=== PATIENT | female | born 1985 | race Caucasian/White ===

== ENCOUNTER 2016-12-20 20:58 | Emergency (ER) | payer MEDICARE ==
[~2016-12-20] VITALS: Ht 162.6 cm; Wt 133.2 kg
[2016-12-20 21:48] LABS: BASOPHILS % (AUTO) 1 % (0-2); EOSINOPHILS # (AUTO) 0.1 10^3uL; EOSINOPHILS % (AUTO) 1 % (0-4); LYMPHOCYTES # (AUTO) 2.5 X10^3; MEAN CORPUSCULAR HEMOGLOBIN 29.6 PG (26.0-34.0); MEAN CORPUSCULAR HGB CONC 35.4 g/dL (31.0-37.0); MEAN CORPUSCULAR VOLUME 84 FL (80-100); MEAN PLATELET VOLUME 9.2 FL (6.0-9.5); MONOCYTES # (AUTO) 0.6 X10^3; MONOCYTES % (AUTO) 7 % (3-11); NEUTROPHILS # (AUTO) 4.8 X10^3; NEUTROPHILS % (AUTO) 60 % (51-67); PLATELET COUNT 179 10^3uL (150-450); WHITE BLOOD COUNT 7.98 10^3uL (4.0-11.0)
[2016-12-20 22:01] LABS: ALBUMIN 4.3 g/dL (3.4-5.0); ANION GAP 19.3 MEQ/L (3-15); TOTAL PROTEIN 7.7 g/dL (6.4-8.5)
[2016-12-20] MEDS ORDERED: ADENOSINE 6 MG/2 ML (ADENOCARD) VIAL IV ONE ×2 (22:10→22:30)
[2016-12-20] MEDS: SODIUM CHLORIDE FLUSH 10 ML SYR IV PRN ×3 (22:12→23:14)
[2016-12-20] MEDS ORDERED: SODIUM CHLORIDE FLUSH 3 ML SYR IV ONE (22:25)
--- NOTE | 2016-12-20 22:33 | NUR ---
notified dr casillas of patient lab blood glucose of 414 per livestock laborer. no new orders received at this time.
[2016-12-20 22:39] LABS: ERYTHROCYTE SEDIMENTATION RT* 29 mm/hr (0-21)
[2016-12-20] MEDS ORDERED: INSULIN LISPRO 1 UNIT/0.01 ML (HUMALOG) DOSE SC ONE (22:40)
[2016-12-20] MEDS ORDERED: INSULIN GLARGINE 1 UNIT/0.01ML (LANTUS) DOSE SC ONE (22:40)
[2016-12-20 22:43] LABS: BILIRUBIN,URINE Negative (Negative); CLARITY,URINE Cloudy; COLOR,URINE Yellow; GLUCOSE, URINE (UA) 2+ (Negative); LEUKOCYTE ESTERASE ,URINE Negative (Negative); URINE CENTRIFUGED VOLUME 12 mL; UROBILINOGEN,URINE 0.2 mg/dL (0.2-1.0)
[2016-12-20 22:44] LABS: RBC,URINE 0-2 /HPF; YEAST,URINE 1+
[2016-12-20] MEDS ORDERED: DILTIAZEM 25 MG/5 ML (CARDIZEM) VIAL IV ONE ×2 (22:50→23:10)
[2016-12-20] MEDS ORDERED: ONDANSETRON 2 MG/ML (Z0FRAN) 2 ML VIAL IV ONE (23:20)
[2016-12-20] MEDS ORDERED: DILTIAZEM 60 MG (CARDIZEM) TAB PO ONE (23:20)
[2016-12-21] MEDS ORDERED: DILTIAZEM CD 180 MG (CARDIZEM CD) CAP PO ONE (00:10)
[2016-12-21 00:11] VITALS: BP 118/84
--- NOTE | 2016-12-21 11:45 | NUR ---
PH CALL FROM EZIO (PHARMACIST FROM [facility]) STATING THAT DR BRADY HAD GIVEN PRESCRIPTION TO PT FOR RECTIVE CREAM THAT IS APPX $500 BUT THEY ARE ABLE TO COMPOUND A SIMILAR PRODUCT FOR APPX $30. DR URRUTIA APPROVES CHANGE IN ORDER TO NITROGLYCERIN 0.4% IN LANOLIN COMPOUNDED FOR PT INSTEAD. CL
== END 2016-12-21 00:45 | disposition home or self-care (01) ==
LOC: ED 20:58
DX: K60.0 Acute anal fissure (principal); K62.5 Hemorrhage of anus and rectum; I47.1 Supraventricular tachycardia; E11.65 Type 2 diabetes mellitus with hyperglycemia; Z79.4 Long term (current) use of insulin
CPT/HCPCS: 36415; 80053; 81003; 81015; 82009; 83690; 84443; 85025; 85610; 85652; 86140; 86850; 86900; 86901; 93005; 96361; 96374; 96375; 96376; 99285; A9270; J0153; J1815; J2405; J7030; 46600; 93010; 99284

== ENCOUNTER → 2017-01-01 | Outpatient (CLI) | payer MEDICARE | LOC: RT 10:41 | PROVIDERS: ATTEND Physician Assistant Medical | DX: I49.8 Other specified cardiac arrhythmias (principal) | CPT/HCPCS: 93225 ==